=== PATIENT | female | born 1985 | race Two or more races ===

== ENCOUNTER 2018-01-02 16:11 | Emergency (ER) | payer SELFPAY ==
[~2018-01-02] VITALS: Ht 170.2 cm; Wt 61.2 kg
--- NOTE | 2018-01-02 16:20 | NUR ---
PT BIB [facility] FOR WEAKNESS AND BIZARRE BEHAVIOR REPORTING ETOH AND XANAX USE TODAY AND NOT EATING ENOUGH TODAY. REPORTS RECENT STRESSORS IN HER PERSONAL LIFE. A/OX4 AND NAD NOTED BUT REQUIRES REPEATED QUESTIONING TO PROVIDE ANSWERS. RESP EVEN UNLABORED. SKIN WARM DRY. IN ER BED 11
[2018-01-02] MEDS: IV NS 0.9% 1,000 ML BAG IV ONE (16:40)
[2018-01-02 16:44] LABS: BASOPHILS % (AUTO) 0.3 % (0.0-2.0); EOSINOPHILS % (AUTO) 3.5 % (0.0-6.0); HEMATOCRIT 38 % (33-45); HEMOGLOBIN 12.6 g/dL (11.5-14.8); LYMPHOCYTES # (AUTO) 1.5 /CMM (0.8-4.8); LYMPHOCYTES % (AUTO) 22.9 % (20.0-44.0); MEAN CORPUSCULAR HGB CONC 33 g/dl (31.0-36.0); MEAN CORPUSCULAR VOLUME 88 fL (82-100); MONOCYTES # (AUTO) 0.5 /CMM (0.1-1.30); MONOCYTES % (AUTO) 7.7 % (2.0-12.0); NEUTROPHILS # (AUTO) 4.4 /CMM (1.8-8.9); NEUTROPHILS % (AUTO) 65.6 % (43.0-81.0); PLATELET COUNT (AUTO) 289 /CMM (150-450); RDW COEFFICIENT OF VARIATION 15.2 (11.5-15.0); RED BLOOD CELL COUNT(AUTO) 4.28 MIL/uL (4.0-5.2); WHITE BLOOD COUNT (AUTO) 6.8 K/uL (4.3-11.0)
[2018-01-02 17:05] LABS: ALBUMIN 3.8 g/dL (3.4-5.0); BILIRUBIN,DIRECT 0.1 mg/dL (0.0-0.2); BILIRUBIN,TOTAL 0.5 mg/dL (0.2-1.0); CALCIUM, SERUM 8.9 mg/dL (8.5-10.1); CREATININE 0.8 mg/dL (0.6-1.3); POTASSIUM 3.4 mmol/L (3.5-5.1); TOTAL PROTEIN, SERUM 7.4 g/dL (6.4-8.2)
[2018-01-02] MEDS ORDERED: POTASSIUM CHLORIDE 20 MEQ TAB.PRT.SR PO ONE (18:08)
[2018-01-02] MEDS: POTASSIUM CHLORIDE 20 MEQ TAB.PRT.SR PO ONE (18:11)
--- NOTE | 2018-01-02 18:23 | NUR ---
RESTING QUIETLY, NAD NOTED. TOLERATED PO POTASSIUM. GIVEN ORANGE JUICE PER PT REQUEST.
--- NOTE | 2018-01-02 18:56 | NUR ---
REPORT GIVEN TO VAUGHN HERRERA FOR [facility]
--- NOTE | 2018-01-02 19:00 | NUR ---
Patient discharged to home in stable condition. Written and verbal after care instructions given. Patient verbalizes understanding of instruction. IV removed. Catheter intact and site benign. Pressure and 4x4 applied to site. No bleeding noted. AMBULATORY STEADY GAIT
[2018-01-02 19:01] VITALS: BP 137/86
== END 2018-01-02 19:01 | disposition home or self-care (01) ==
LOC: ER 16:15
DX: R42 Dizziness and giddiness (principal); F13.20 Sedative, hypnotic or anxiolytic dependence, uncomplicated; F41.9 Anxiety disorder, unspecified
CPT/HCPCS: 36415; 80048-TC; 80076-TC; 84703-TC; 85025-TC; A4606; J7030; Z7610